=== PATIENT | female | born 1950 | race Caucasian/White ===

== ENCOUNTER 2016-09-15 00:09 | Emergency (ER) | payer BC ==
--- NOTE | 2016-09-15 00:57 | RAD ---
EXAM: Nasal Bones CLINICAL INDICATION: 65-year-old female, fell and landed on nose. COMPARISON: None. TECHNIQUE: Three views of the nasal bones were obtained in AP, bilateral projections. FINDINGS: There is no clear fracture or dislocation. The joint spaces are preserved. No soft tissue abnormalities are seen. Radiographs of the facial structures are limited in assessment of subtle fracture or soft tissue injury. The bilateral nasal bones reveal minimal downward displacement, may be secondary to normal anatomic variants, however nondisplaced or minimally displaced fracture cannot be excluded. Further evaluation with CT maxillofacial is recommended. IMPRESSION: Radiographs of the facial structures are limited in assessment of subtle fracture or soft tissue injury. The bilateral nasal bones reveal minimal downward displacement, may be secondary to normal anatomic variants, however nondisplaced or minimally displaced fracture cannot be excluded. Further evaluation with CT maxillofacial is recommended. Electronically signed by: Shell Miranda MD 09/15/2016 12:55 AM CDT Workstation: [id number]
[2016-09-15] MEDS ORDERED: CHLORHEXIDINE GLUCONATE 4 % 15 ML UD TOP ONE (01:13)
--- NOTE | 2016-09-15 01:19 | ED.PDOC ---
History of Present Illness - General Chief Complaint: Trauma Stated Complaint: fall, laceration to nose Time Seen by Provider: 09/15/16 00:29 Source: patient, RN notes reviewed, Vital Signs reviewed, other - friends Exam Limitations: intoxication - History of Present Illness Initial Comments: Per friends patient tripped over her dog while they were dancing and fell face first onto the wooden floor. No LOC but friends feel she is having episodes of confusion. She has had at least 1/3 of a bottle of wine and 3 shots of [place]. She has a cut on the bridge of her nose. Denies any other injuries. Timing/Duration: 1 hour Severity: mild Improving Factors: nothing Worsening Factors: nothing Associated Symptoms: denies symptoms Allergies/Adverse Reactions: Allergies NO KNOWN ALLERGY Allergy (Verified 09/15/16 01:11) Review of Systems - Review of Systems Constitutional: States: no symptoms reported EENTM: States: see HPI, nose pain Respiratory: States: no symptoms reported Cardiology: States: no symptoms reported Gastrointestinal/Abdominal: States: no symptoms reported Musculoskeletal: States: no symptoms reported Skin: States: see HPI Neurological: States: other - Confusion/Intoxicated Past Medical History (General) - Patient Medical History Hx Seizures: No Hx Asthma: No Hx Cardiac Disorders: No Hx Congestive Heart Failure: No Hx Diabetes: No - Vaccination History Hx Tetanus, Diphtheria Vaccination: No Hx Influenza Vaccination: No Hx Pneumococcal Vaccination: No Immunizations Up to Date: No - Social History Hx Tobacco Use: No Hx Alcohol Use: Yes Family Medical History - Family History Mother Family History: Unknown Physical Exam - Physical Exam General Appearance: Other - Intoxicated Eye Exam: bilateral normal Ears, Nose, Throat: hearing grossly normal, normal pharynx, other - Laceration across bridge of nose Neck: non-tender, full range of motion, supple, normal inspection Respiratory: lungs clear, normal breath sounds, no respiratory distress, no accessory muscle use Cardiovascular/Chest: regular rate, rhythm, no gallop, no murmur Extremity: normal range of motion, non-tender, normal inspection Neurologic: medical claims assistant II-XII nml as tested, no motor/sensory deficits, alert, other - Intoxicated Skin Exam: normal color, warm/dry Comments: Vital Signs 09/15/16 09/15/16 00:21 00:22 Temperature 97.9 F Pulse Rate [ 98 H 98 H left] Respiratory 20 20 Rate Blood Pressure 113/53 [left] O2 Sat by Pulse 94 L Oximetry Progress - Progress Progress: 09/15/16 01:[address] scan to better evaluate nose Friends are concerned that she is confused and worry it is more than the intoxication so will also get a head CT - EKG/XRAY/CT CT: Maxillofacial: minimally displaced nasal fracture per Rad CT Ordered: Yes - Head: No acute intracranial abnormality per Rad Procedures - Laceration/Wound Repair Face Wound Length (cm): 1 - on bridge of nose Wound's Depth, Shape: superficial, linear Wound Explored: no foreign body removed Betadine Prep?: No - cleaned with Hibiclens Volume Anesthetic (cc's): 0 Wound Repaired With: dermabond Layer Closure?: No Sterile Dressing Applied?: No Splint Applied?: No Sling Applied?: No Departure - Departure Clinical Impression: Fracture of nasal bones Qualifiers: Encounter type: initial encounter Fracture type: open Qualified Code(s): S02.2XXB - Fracture of nasal bones, initial encounter for open fracture Laceration of nose without complication Qualifiers: Encounter type: initial encounter Qualified Code(s): S01.21XA - Laceration without foreign body of nose, initial encounter Time of Disposition: 01:57 Disposition: Discharge to Home or Self Care Condition: Good Departure Forms: ED Discharge - Pt. Copy, Patient Portal Self Enrollment Instructions: DI for Laceration Repair With Dermabond, DI for Nose Fracture Diet: resume usual diet Activity: increase activity as tolerated
--- NOTE | 2016-09-15 01:51 | CT ---
EXAM: CT facial bones without contrast. INDICATION: Head trauma. TECHNIQUE: Contiguous axial CT images of the facial bones. Intravenous contrast: Absent. Reformats: MPRs created and utilized. DLP 514 mGy-cm. This exam was performed according to our departmental dose-optimization program, which includes automated exposure control, adjustment of the mA and/or kV according to patient size and/or use of iterative reconstruction technique. COMPARISON: None. FINDINGS: Subcutaneous: Unremarkable. Globes: Unremarkable. No retro-orbital hematoma. Orbits: Intact. Mandible: Intact. Maxilla: Intact. Nasal bones/septum: There is a minimally displaced nasal bone fracture. Zygomatic arches: Intact. Paranasal sinuses: Visualized portions are aerated. IMPRESSION: Minimally displaced nasal bone fracture Electronically signed by: Gabe Cain MD 09/15/2016 1:49 AM CDT Workstation: [id number]
--- NOTE | 2016-09-15 01:52 | CT ---
EXAM: CT head without contrast. INDICATION: Headache. TECHNIQUE: Contiguous axial CT images of the brain. Intravenous contrast: Absent. DLP 773 mGy-cm. This exam was performed according to our departmental dose-optimization program, which includes automated exposure control, adjustment of the mA and/or kV according to patient size and/or use of iterative reconstruction technique. COMPARISON: None. FINDINGS: Subcutaneous: Unremarkable. No acute intracranial hemorrhage. No midline shift. No mass effect. Ventricles: No hydrocephalus. Burks-white differentiation preserved. Paranasal sinuses/mastoid air cells: A mucus retention cyst is in the right maxillary sinus Bones/orbits: There is a minimally displaced nasal bone fracture. IMPRESSION: 1. No CT evidence of acute intracranial hemorrhage. 2. Minimally displaced nasal bone fracture Electronically signed by: Gabe Cain MD 09/15/2016 1:50 AM CDT Workstation: [id number]
[2016-09-15 02:08] VITALS: BP 123/80; TEMP 98.1; O2SAT 92
== END 2016-09-15 02:08 | disposition home or self-care (01) ==
LOC: ER 00:09
DX: S01.21XA Laceration without foreign body of nose, initial encounter (principal); S02.2XXB Fracture of nasal bones, initial encounter for open fracture; W01.0XXA Fall on same level from slipping, tripping and stumbling without subsequent striking against object, initial encounter; Y93.41 Activity, dancing; Y92.9 Unspecified place or not applicable